=== PATIENT | male | born 1980 | race Caucasian/White ===

== ENCOUNTER 2024-06-19 10:50 | Emergency (ER) | payer OTHER ==
[~2024-06-19] VITALS: Ht 175.3 cm; Wt 102.0 kg
[2024-06-19 11:03] VITALS: BP 136/114
[2024-06-19] MEDS ORDERED: KETOROLAC TROMETHAMINE 30 MG/ML SDV IM ONE (11:10)
[2024-06-19 11:15] VITALS: BP 145/101
[2024-06-19 11:30] VITALS: BP 151/96
[2024-06-19 11:42] VITALS: BP 151/96
== END 2024-06-19 11:43 | disposition home or self-care (01) ==
LOC: ED 10:50
DX: G89.29 Other chronic pain (principal); M47.12 Other spondylosis with myelopathy, cervical region; E10.8 Type 1 diabetes mellitus with unspecified complications; M06.9 Rheumatoid arthritis, unspecified; Z98.1 Arthrodesis status